=== PATIENT | male | born 1955 | race African-American/Black ===

== ENCOUNTER 2017-10-04 20:57 | Emergency (ER) | payer BC, OTHER ==
[2017-10-04 21:15] VITALS: BP 110/61; PULSE 88; TEMP 98.1; BMI 21.7
--- NOTE | 2017-10-04 22:02 | PDOC ---
History of Present Illness - General Chief Complaint: Cold Symptoms Stated Complaint: FATIGUE - History of Present Illness Initial Comments: 62-year-old male without any comorbidities presents for evaluation of sinus congestion 2 weeks without any other associated symptoms. He reports green mucus from his nose. 10/04/17 21:57 Past History - Past Medical History Allergies/Adverse Reactions: Allergies Allergy/AdvReac Type Severity Reaction Status Date / Time No Known Allergies Allergy Verified 10/04/17 21:15 Home Medications: Ambulatory Orders Oxymetazoline HCl [Afrin] 1 spray NS BID #1 bottle 10/04/17 Sulfamethoxazole/Trimethoprim [Bactrim Ds -] 1 tab PO BID #14 tablet 10/04/17 COPD: No - Suicide/Smoking/Psychosocial Hx Smoking History: Never smoked Have you smoked in the past 12 months: No Information on smoking cessation initiated: No Hx Alcohol Use: No Drug/Substance Use Hx: No Substance Use Type: None Review of Systems - Review of Systems HEENTM: Yes: Nose Congestion Respiratory: Yes: Cough All Other Systems: Reviewed and Negative *Physical Exam - Vital Signs Last Vital Signs Temp Pulse Resp BP Pulse Ox 98.1 F 88 18 110/61 100 10/04/17 21:12 10/04/17 21:12 10/04/17 21:12 10/04/17 21:12 10/04/17 21:12 - Physical Exam Comments: GENERAL: The patient is awake, alert, and fully oriented, in no acute distress. HEAD: Normal with no signs of trauma. EYES: Pupils equal, round and reactive to light, extraocular movements intact, sclera anicteric, conjunctiva clear. ENT: Ears normal, nares demonstrate injected nasal turbinates, with tender frontal sinuses, oropharynx clear without exudates. Moist mucous membranes. NECK: Normal range of motion, supple without lymphadenopathy, JVD, or masses. LUNGS: Breath sounds equal, clear to auscultation bilaterally. No wheezes, and no crackles. HEART: Regular rate and rhythm, normal S1 and S2 without murmur, rub or gallop. ABDOMEN: Soft, nontender, normoactive bowel sounds. No guarding, no rebound. No masses. EXTREMITIES: Normal range of motion, no edema. No clubbing or cyanosis. No cords, erythema, or tenderness. NEUROLOGICAL: Cranial nerves II through XII grossly intact. Normal speech, normal gait. PSYCH: Normal mood, normal affect. SKIN: Warm, Dry, normal turgor, no rashes or lesions noted. 10/04/17 21:58 Medical Decision Making - Medical Decision Making This is sinusitis and is penicillin ALLERGIC male I will treat him with Bactrim and phenylephrine 10/04/17 21:58 *DC/Admit/Observation/Transfer Diagnosis at time of Disposition: Sinusitis - Discharge Dispostion Disposition: HOME Condition at time of disposition: Stable Decision to Admit order: No - Referrals Referrals: Bernardo Ozuna [Non Staff, Medical] - - Patient Instructions Printed Discharge Instructions: Sinusitis Additional Instructions: Return to the emergency room should her symptoms worsen or go unresolved. I prescribed few an antibiotic which will help your sinus infection as well as a nasal spray which will help you congestion. It's important few to follow-up with the primary care doctor. Please follow-up with the primary care doctor in the next 1-2 days for further evaluation and treatment options. If her fever develops he may take Tylenol and Motrin as prescribed. - Post Discharge Activity
== END 2017-10-04 22:04 | disposition home or self-care (01) ==
LOC: JERFT 20:57
DX: J01.90 Acute sinusitis, unspecified (principal); Z88.0 Allergy status to penicillin
CPT/HCPCS: 99281-25

== ENCOUNTER 2018-04-20 00:37 | Emergency (ER) | payer BC, OTHER ==
[2018-04-20 01:46] VITALS: BP 102/47; PULSE 82; TEMP 98.2; BMI 20.9
[2018-04-20] MEDS ORDERED: LIDOCAINE 5% TOPICAL PATCH TP ONE (02:10)
[2018-04-20] MEDS ORDERED: ACETAMINOPHEN 500 MG TABLET (FP) PO ONE (02:10)
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
[2018-04-20] MEDS ORDERED: LIDOCAINE 5% TOPICAL PATCH ONE (02:33)
[2018-04-20] MEDS ORDERED: ACETAMINOPHEN 325 MG TABLET (FP) ONE (02:33)
[2018-04-20 03:01] LABS: BASO % 0.5 % (0-2.0); EOS % 0.5 % (0-4.5); HEMATOCRIT 38.7 % (35.4-49); HEMOGLOBIN 13.3 GM/dL (11.7-16.9); MCHC 34.4 g/dl (32.0-35.9); MEAN CELL VOLUME 87.1 fl (80-96); MEAN PLT VOLUME 8.3 fl (7.5-11.1); PLATELET COUNT 198 K/MM3 (134-434); RBC 4.44 M/mm3 (4.00-5.60); RDW 13.9 % (11.9-15.9); WHITE BLOOD COUNT 7.4 K/mm3 (4.0-10.0)
[2018-04-20 03:18] LABS: INR 1.05 (0.83-1.09); PROTHROMBIN TIME (PATIENT) 12.4 SEC (9.7-13.0)
[2018-04-20 03:26] LABS: ALK PHOS 86 U/L (45-117); ANION GAP 7 MMOL/L (8-16); BILIRUBIN,TOTAL 1.2 mg/dL (0.2-1); BLOOD UREA NITROGEN 18 mg/dL (7-18); CALCIUM 8.8 mg/dL (8.5-10.1); CHLORIDE 105 mmol/L (98-107); CO2 28 mmol/L (21-32); CREATININE 0.8 mg/dL (0.55-1.3); GLUCOSE,RANDOM 136 mg/dL (74-106); MAGNESIUM 2.3 mg/dL (1.8-2.4); POTASSIUM 4.5 mmol/L (3.5-5.1); SGOT/AST 21 U/L (15-37); SGPT/ALT 23 U/L (13-61); SODIUM 140 mmol/L (136-145); TOT PROT 7.3 g/dl (6.4-8.2)
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
--- NOTE | 2018-04-20 09:10 | EKG ---
Test Reason : Blood Pressure : / mmHG Vent. Rate : 071 BPM Atrial Rate : 071 BPM P-R Int : 170 ms QRS Dur : 084 ms QT Int : 356 ms P-R-T Axes : 049 055 030 degrees QTc Int : 386 ms POOR DATA QUALITY, INTERPRETATION MAY BE ADVERSELY AFFECTED NORMAL SINUS RHYTHM MINIMAL VOLTAGE CRITERIA FOR LVH, MAY BE NORMAL VARIANT BORDERLINE ECG NO PREVIOUS ECGS AVAILABLE Confirmed by MAN DORMAN, JUVENCIO ([id number]) on 04/20/2018 9:09:24 AM Referred By: Confirmed By:JUVENCIO CONWAY MD
[2018-04-20] MEDS ORDERED: LIDOCAINE PATCH REMOVAL MC SCH (22:00)
== END 2018-04-20 04:44 | disposition home or self-care (01) ==
LOC: JER 00:37
DX: R20.0 Anesthesia of skin (principal); Z87.828 Personal history of other (healed) physical injury and trauma
CPT/HCPCS: 36415; 70450-TC; 71045-TC-FY; 80053; 82550; 82553; 83735; 84484; 85025; 85610; 93005; 93010; 99283-25